=== PATIENT | female | born 1970 | race Caucasian/White ===

== ENCOUNTER 2022-04-08 14:02 | Outpatient (CLI) | payer BC, SELFPAY ==
--- NOTE | ~2022-04-08 | XR_ITS ---
XR shoulder LT min 2V DATE: 04/08/2022 14:29 INDICATION: Left shoulder pain for 8 months, unable to raise left arm. No injury. TECHNIQUE: 4 views COMPARISON: None FINDINGS: No fracture or dislocation, periosteal reaction or bone destruction or abnormal soft tissue calcification of the left shoulder. IMPRESSION: No significant abnormality Reviewed, dictated and finalized at location A. IMPRESSION: No significant abnormality
== END 2022-04-08 14:03 | disposition home or self-care (01) ==
PROVIDERS: PCP Family Medicine; Visit Provider Orthopaedic Surgery
DX: M25.512 Pain in left shoulder (principal)
CPT/HCPCS: 73030

== ENCOUNTER 2022-04-22 12:03 | Outpatient (CLI) | payer BC, SELFPAY ==
--- NOTE | ~2022-04-22 | MR_ITS ---
EXAMINATION: MR shoulder LT wo con DATE: 04/22/2022 13:00 INDICATION: Left shoulder pain. TECHNIQUE: Magnetic resonance imaging (MRI) of the left shoulder was performed without intravenous co ntrast. Sequences included axial PD-weighted FS FSE, coronal oblique PD-weighted FS FSE and T2-weight ed FS FSE, and sagittal oblique T2-weighted FS FSE and T1-weighted FSE. COMPARISON: Left shoulder radiographs 04/08/2022 FINDINGS: Coracoacromial arch: The acromion undersurface is curved in morphology (type II). There is moderate acromioclavicular join t osteoarthritis including inferiorly directed osteophytes. There is mild subacromial/subdeltoid burs itis. Rotator cuff: There is mild supraspinatus and infraspinatus tendinopathy. Teres minor tendon is normal. Subscapular is tendon is normal. There is no fatty atrophy of the rotator cuff muscle bellies. Biceps tendon and glenoid labrum: Biceps tendon is in bicipital groove. Intra-articular biceps tendon is normal. The glenoid labrum is normal. Fluid: There is no glenohumeral joint effusion. Bones/cartilage: The glenoid cartilage is normal. Humeral head cartilage is normal. IMPRESSION: 1. Mild rotator cuff tendinopathy. No tear. 2. Moderate acromioclavicular joint osteoarthritis. 3. Mild subacromial/subdeltoid bursitis. Reviewed, dictated and finalized at location A. 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
== END 2022-04-22 12:04 | disposition home or self-care (01) ==
PROVIDERS: PCP Family Medicine; Visit Provider Orthopaedic Surgery
DX: M75.02 Adhesive capsulitis of left shoulder (principal); M19.012 Primary osteoarthritis, left shoulder; M75.52 Bursitis of left shoulder
CPT/HCPCS: 73221

== ENCOUNTER 2024-08-08 13:29 | Outpatient (CLI) | payer OTHER, SELFPAY ==
--- NOTE | ~2024-08-08 | CT_ITS ---
CLINICAL INDICATION: Microscopic hematuria COMPARISON: None. TECHNIQUE: Multiple contiguous axial images of the abdomen and pelvis were performed both prior to an d following the administration of with 100 mL Omnipaque-350 intravenous contrast The dose-length product (DLP) was 905.03 mGy-cm. Automated exposure control and iterative reconstruction technique were employed. FINDINGS/OBSERVATIONS: Visualized lower thorax: The bilateral lung bases are clear. The heart is of normal size, without pericardial effusion. Small hiatal hernia is present. Liver: The liver demonstrates homogeneous enhancement and is not enlarged measuring 16 cm in longitudinal di mension. Gallbladder and biliary system: The gallbladder is surgically absent. Pancreas: The pancreas enhances homogeneously without ductal dilatation. Spleen: The spleen enhances homogeneously and is not enlarged measuring 8 cm in longitudinal dimension. Kidneys: The bilateral kidneys enhance symmetrically without hydronephrosis or renal calculi. The bilateral ureters opacified with contrast. No filling defects are identified within the right ureter from the kidney to the bladder. The distalmost 7 cm of the left ureter are not opacified with contrast on the submitted images. The r emainder of the left ureter opacifies and is without a filling defect. Contrast is visualized extendi ng into the bladder from the left ureter. Adrenal glands: Unremarkable. Gastrointestinal tract: Fecal stasis within the colon. Appendix: The air-filled appendix is of normal caliber (axial series, images 73 through 81) Vasculature: Unremarkable. Lymph nodes: No pathologically enlarged or morphologically suspicious lymph nodes within the retroperitoneum or at the root of the mesentery. Pelvic structures: The bladder is distended, and opacifies with excreted contrast without a filling defect in the anteri or two thirds of the bladder. The uterus is anteverted and anteflexed, and otherwise unremarkable. Body wall and musculoskeletal: Small fat-containing umbilical hernia. Degenerative disease is identified at the level of L5/S1 with near complete obliteration of the inter vertebral disc space, endplate changes and facet arthropathy. The remainder of the lumbosacral spine is unremarkable. IMPRESSION: No filling defect within the entirety of the right collecting system, and ureter. No filling defect within the left collecting system and all but the final 7 cm of the left distal ure ter, which does not opacify with excreted contrast. No discrete filling defect within the anterior two thirds of the bladder. Significant fecal stasis within the colon. Reviewed, dictated and finalized at location A. 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 No filling defect within the left collecting system and all but the final 7 cm of the left distal ureter, which does not opacify with excreted contrast. No discrete filling defect within the anterior two thirds of the bladder. Significant fecal stasis within the colon.
== END 2024-08-08 13:30 | disposition home or self-care (01) ==
PROVIDERS: PCP Family Medicine; Visit Provider Urology
DX: R31.21 Asymptomatic microscopic hematuria (principal); K44.9 Diaphragmatic hernia without obstruction or gangrene
CPT/HCPCS: 74178; Q9967